=== PATIENT | male | born 1980 | race Hispanic/Latino ===

== ENCOUNTER → 2025-07-07 | Day surgery (SDC) | payer OTHER ==
[~2025-07-07] MED LIST: ALBUTEROL0.63 MG/3 INH; ASPIRIN81 MG PO; LACTATED RINGER'S 1,000 ML ONE; LIDOCAINE HCL 2% LOCAL 20 ML VIAL ONE; PROPOFOL IV EMULSION 10 MG/ML 20 ML VIAL ONE
[2025-07-07 11:05] VITALS: BP 110/84; PULSE 72; RESP 16; O2SAT 98
== END | disposition home or self-care (01) ==
LOC: EDSEX 06-24 14:00 → ENDO 07:59
PROVIDERS: ATTEND Internal Medicine Gastroenterology
DX: K22.2 Esophageal obstruction (principal); K29.00 Acute gastritis without bleeding; K29.50 Unspecified chronic gastritis without bleeding; B96.81 Helicobacter pylori [H. pylori] as the cause of diseases classified elsewhere; K21.00 Gastro-esophageal reflux disease with esophagitis, without bleeding; K31.89 Other diseases of stomach and duodenum; K44.9 Diaphragmatic hernia without obstruction or gangrene; E78.5 Hyperlipidemia, unspecified; J45.909 Unspecified asthma, uncomplicated; Z71.89 Other specified counseling; Z01.810 Encounter for preprocedural cardiovascular examination; Z79.82 Long term (current) use of aspirin; Z79.899 Other long term (current) drug therapy; Z68.28 Body mass index [BMI] 28.0-28.9, adult; Z71.3 Dietary counseling and surveillance
CPT/HCPCS: 43239; 43450; 93005 ×2; J2003; J2470; J2704; J7121